=== PATIENT | female | born 1990 | race Caucasian/White ===

== ENCOUNTER 2019-06-01 15:57 | Emergency (ER) | payer SELFPAY ==
[~2019-06-01] VITALS: Ht 165.1 cm; Wt 61.0 kg
[2019-06-01 16:00] VITALS: BP 156/105
== END 2019-06-01 20:44 | disposition left against medical advice (07) ==
LOC: ER 15:57
DX: I10 Essential (primary) hypertension (principal); Z53.21 Procedure and treatment not carried out due to patient leaving prior to being seen by health care provider